=== PATIENT | male | born 1990 | race Caucasian/White ===

== ENCOUNTER → 2022-04-21 | Outpatient (REF) | payer BC | LOC: M LAB REF 17:16 | PROVIDERS: ATTEND Surgery | DX: D17.1 Benign lipomatous neoplasm of skin and subcutaneous tissue of trunk (principal); D17.23 Benign lipomatous neoplasm of skin and subcutaneous tissue of right leg ==

== ENCOUNTER → 2022-04-23 | Outpatient (REF) | LOC: M RAD 14:10 | PROVIDERS: ATTEND Nurse Practitioner Adult Health | DX: Z00.00 Encounter for general adult medical examination without abnormal findings (principal) ==